=== PATIENT | male | born 1975 | race American Indian/Alaskan Native ===

== ENCOUNTER 2018-03-26 20:54 | Emergency (ER) | payer MEDICAID ==
[2018-03-26 21:22] VITALS: BP 140/86
[2018-03-26] MEDS ORDERED: ULTRAM ONE (23:56)
[2018-03-26] MEDS ORDERED: ULTRAM PO ONE (23:59)
[2018-03-27] MEDS ORDERED: FLEXERIL PO ONE (01:49)
[2018-03-27] MEDS ORDERED: TORADOL IM ONE (01:49)
--- NOTE | 2018-03-27 01:53 | Emergency Department Report ---
ED General Adult HPI - General Chief complaint: Neck Pain/Injury Stated complaint: NECK PAIN Time Seen by Provider: 03/27/18 01:49 Source: patient Mode of arrival: Ambulatory Limitations: No Limitations - History of Present Illness Initial comments: 42-year-old -[place] female with a past medical history of asthma comes in today complaining of neck pain that radiates down her back and both arms down to her fingers. Patient reports that the feeling is burning sensation and numbness. This started about 5 PM. She reports this is never happened to her before and denies any trauma. Patient reports that she was cooking and within a potatoes when she felt something pinch and all of a sudden she had sharp pain that started shooting down her arms to her fingers that is burning and constant. Patient denies any fever no chills no nausea no vomiting. Patient reports that the Ultram that she was given has not touched her pain. Location: neck Radiation: back, extremity Severity scale (0 -10): 10 (bilateral hands) Quality: burning, sharp Consistency: constant Improves with: none Worsens with: movement Associated Symptoms: denies other symptoms. denies: confusion, chest pain, fever/chills, headaches Treatments Prior to Arrival: none - Related Data Previous Rx's Medication Instructions Recorded Last Taken Type Cyclobenzaprine [Flexeril 10 MG 10 mg PO TID PRN #15 tablet 03/27/18 Unknown Rx TAB] Ibuprofen [Motrin 800 MG tab] 800 mg PO Q8HR PRN #30 tablet 03/27/18 Unknown Rx Allergies Allergy/AdvReac Type Severity Reaction Status Date / Time shellfish derived Allergy Hives Verified 03/26/18 21:21 ED Review of Systems ROS: Stated complaint: NECK PAIN Other details as noted in HPI Constitutional: denies: chills, fever Eyes: denies: eye pain, eye discharge, vision change ENT: denies: ear pain, throat pain Respiratory: denies: cough, shortness of breath, wheezing Cardiovascular: denies: chest pain, palpitations Endocrine: no symptoms reported Gastrointestinal: denies: abdominal pain, nausea, diarrhea Genitourinary: denies: urgency, dysuria Musculoskeletal: back pain, arthralgia (neck pain that radiates) Skin: denies: rash, lesions Neurological: denies: headache, weakness, paresthesias Psychiatric: denies: anxiety, depression Hematological/Lymphatic: denies: easy bleeding, easy bruising ED Past Medical Hx - Past Medical History Previous Medical History?: Yes Hx Asthma: Yes - Surgical History Past Surgical History?: No - Social History Smoking Status: Never Smoker Substance Use Type: None - Medications Home Medications: Home Medications Medication Instructions Recorded Confirmed Last Taken Type Cyclobenzaprine [Flexeril 10 MG 10 mg PO TID PRN #15 tablet 03/27/18 Unknown Rx TAB] Ibuprofen [Motrin 800 MG tab] 800 mg PO Q8HR PRN #30 tablet 03/27/18 Unknown Rx ED Physical Exam - General Limitations: No Limitations General appearance: alert, other (tearful. Appears to be in pain) - Head Head exam: Present: atraumatic, normocephalic - Eye Eye exam: Present: normal appearance - Neck Neck exam: Present: normal inspection, tenderness, lymphadenopathy (secondary to pain). Absent: full ROM - Respiratory Respiratory exam: Present: normal lung sounds bilaterally. Absent: respiratory distress - Cardiovascular Cardiovascular Exam: Present: tachycardia - Expanded Upper Extremity Exam Left Shoulder Exam: Present: normal inspection, full ROM, tenderness (tenderness trapeze) Upper Arm exam: Present: normal inspection, full ROM. Absent: tenderness Elbow exam: Present: normal inspection, full ROM. Absent: tenderness Forearm Wrist exam: Present: normal inspection, full ROM. Absent: tenderness Hand Wrist exam: Present: normal inspection, full ROM. Absent: tenderness Right Shoulder Exam: Present: normal inspection, tenderness (trapezius muscle) Upper Arm exam: Present: normal inspection. Absent: full ROM Elbow exam: Present: normal inspection. Absent: full ROM, tenderness Forearm Wrist exam: Present: normal inspection, full ROM. Absent: tenderness Hand Wrist exam: Present: normal inspection, full ROM. Absent: tenderness Vascular: Present: normal capillary refill - Back Exam Back exam: Present: normal inspection, tenderness (upper back tenderness) - Neurological Exam Neurological exam: Present: alert, oriented X3 - Psychiatric Psychiatric exam: Present: normal affect, normal mood - Skin Skin exam: Present: warm, dry, intact, normal color. Absent: rash ED Course Vital Signs 03/26/18 21:15 Temperature 98.4 F Pulse Rate 121 H Respiratory 20 Rate Blood Pressure 140/86 O2 Sat by Pulse 100 Oximetry ED Medical Decision Making - Radiology Data Radiology results: report reviewed FINDINGS: There is moderate narrowing of the C5-C6 disc with anterior osteophytes. The canal size is normal at this level. Nerve root impingement is not seen. There is severe narrowing of the C6-C7 disc. There is posterior spurring along the ventral aspect of the spinal canal left of midline with borderline canal size. Neural foraminal impingement is not seen. The upper cervical discs are normal height. The alignment is normal. The prevertebral soft tissues and C1-C2 articulation appear intact. IMPRESSION: Moderate to severe arthritic changes of the C5-C6 and C6-C7 discs as described. Transcribed By: RB Dictated By: PRAMOD ARREOLA MD Electronically Authenticated By: PRAMOD ARREOLA MD Signed Date/Time: 03/27/18401 DD/ 1 - Medical Decision Making Assessment evaluated by this provider fast track. Toradol injection and Flexeril was given to patient. CT of the neck was ordered and completed. IMPRESSION: Moderate to severe arthritic changes of the C5-C6 and C6-C7 discs as described. Would discharge patient 1 ibuprofen and Flexeril she's to follow up with orthopedics for further evaluation. Critical care attestation.: If time is entered above; I have spent that time in minutes in the direct care of this critically ill patient, excluding procedure time. ED Disposition Clinical Impression: Degenerative arthritis of cervical spine Qualifiers: Spinal osteoarthritis complication: with radiculopathy Qualified Code(s): M47.22 - Other spondylosis with radiculopathy, cervical region Disposition: DC-01 TO HOME OR SELFCARE Is pt being admited?: No Does the pt Need Aspirin: No Condition: Stable Instructions: Osteoarthritis (ED) Additional Instructions: Please take pain medication as prescribed. Please follow up with orthopedics for further evaluation and management. Prescriptions: Cyclobenzaprine [Flexeril 10 MG TAB] 10 mg PO TID PRN #15 tablet PRN Reason: muscle spasm Ibuprofen [Motrin 800 MG tab] 800 mg PO Q8HR PRN #30 tablet PRN Reason: Pain Referrals: [facility] [Other] - 3-5 Days PRAMOD ABARCA MD [Staff Physician] - 3-5 Days MAREK RAMIREZ MD [Staff Physician] - 3-5 Days Forms: Work/School Release Form(ED)
--- NOTE | 2018-03-27 04:07 | Cat Scan Report ---
FINAL REPORT EXAM: CT CERVICAL SPINE WO CON HISTORY: neck pain with burning and radiation down both arm TECHNIQUE: Routine axial imaging was obtained of the cervical spine without IV contrast with sagittal and coronal reconstructions. FINDINGS: There is moderate narrowing of the C5-C6 disc with anterior osteophytes. The canal size is normal at this level. Nerve root impingement is not seen. There is severe narrowing of the C6-C7 disc. There is posterior spurring along the ventral aspect of the spinal canal left of midline with borderline canal size. Neural foraminal impingement is not seen. The upper cervical discs are normal height. The alignment is normal. The prevertebral soft tissues and C1-C2 articulation appear intact. IMPRESSION: Moderate to severe arthritic changes of the C5-C6 and C6-C7 discs as described.
[2018-03-27] MEDS ORDERED: NORCO 5/325 PO ONE (04:27)
== END 2018-03-27 05:15 | disposition home or self-care (01) ==
LOC: ED 20:54
DX: M47.22 Other spondylosis with radiculopathy, cervical region (principal); J45.909 Unspecified asthma, uncomplicated; Z91.013 Allergy to seafood
CPT/HCPCS: 72125; 96372; 99283; J1885

== ENCOUNTER 2018-03-31 11:45 | Emergency (ER) | payer MEDICAID ==
[2018-03-31 12:24] VITALS: BP 122/80
[2018-03-31] MEDS ORDERED: TORADOL IM ONE (15:48)
[2018-03-31] MEDS ORDERED: FLEXERIL PO ONE (15:48)
--- NOTE | 2018-03-31 16:02 | Emergency Department Report ---
ED Neck Pain/Injury HPI - General Chief Complaint: Neck Pain/Injury Stated Complaint: NECK/BILATERAL ARM PAIN Time Seen by Provider: 03/31/18 15:25 Mode of arrival: Ambulatory Limitations: No Limitations - History of Present Illness Initial Comments: This is a 42-year-old female nontoxic, well nourished in appearance, no acute signs of distress presents to the ED with c/o of neck pain times 1 week. Patient stated last week she was cooking and felt a sharp neck pain sensation that radiates to bilateral upper extremities and describes as aching. Patient stated that intermittently she gets a tingling sensation with numbness. Patient denies any direct trauma. Patient stated that symptoms are resolved slightly since last week but has not resolved completely. Patient stated that she was seen by a provider in the ED last week and received a CT scan and was told that she has severe arthritis of the C-spine but denies following up with a spine doctor. Patient denies any new trauma. Patient has pain as aching. Denies any headache, blurry vision, fever, chills, nausea, vomiting, chest pain , shortness of breath, abdominal pain. Patient denies any drug allergies or significant past medical history. MD Complaint: neck pain -: week(s) (1) Place: home Radiation: right upper extremity, left upper extremity Severity: mild Severity scale (0 -10): 8 Quality: aching Consistency: constant Improves With: none Worsens With: none Associated Symptoms: none. denies: headache, fever, numbness, tingling, weakness, vertigo, difficulty walking, swollen glands, difficulty swallowing, nausea, vomiting Treatments Prior to Arrival: none - Related Data Previous Rx's Medication Instructions Recorded Last Taken Type Cyclobenzaprine [Flexeril 10 MG 10 mg PO TID PRN #15 tablet 03/27/18 Unknown Rx TAB] Ibuprofen [Motrin 800 MG tab] 800 mg PO Q8HR PRN #30 tablet 03/27/18 Unknown Rx Naproxen [Naprosyn TAB] 500 mg PO BID PRN #30 tablet 03/31/18 Unknown Rx methOCARBAMOL [Robaxin TAB] 500 mg PO BID #10 tab 03/31/18 Unknown Rx Allergies Allergy/AdvReac Type Severity Reaction Status Date / Time shellfish derived Allergy Hives Verified 03/26/18 21:21 ED Review of Systems ROS: Stated complaint: NECK/BILATERAL ARM PAIN Other details as noted in HPI Constitutional: denies: chills, fever Eyes: denies: eye pain, eye discharge, vision change ENT: denies: ear pain, throat pain Respiratory: denies: cough, shortness of breath, wheezing Cardiovascular: denies: chest pain, palpitations Endocrine: no symptoms reported Gastrointestinal: denies: abdominal pain, nausea, diarrhea Genitourinary: denies: urgency, dysuria Musculoskeletal: back pain. denies: joint swelling, arthralgia Skin: denies: rash, lesions Neurological: denies: headache, weakness, paresthesias Psychiatric: denies: anxiety, depression Hematological/Lymphatic: denies: easy bleeding, easy bruising ED Past Medical Hx - Past Medical History Hx Asthma: Yes - Surgical History Past Surgical History?: Yes Additional Surgical History: - Social History Smoking Status: Never Smoker Substance Use Type: None - Medications Home Medications: Home Medications Medication Instructions Recorded Confirmed Last Taken Type Cyclobenzaprine [Flexeril 10 MG 10 mg PO TID PRN #15 tablet 03/27/18 Unknown Rx TAB] Ibuprofen [Motrin 800 MG tab] 800 mg PO Q8HR PRN #30 tablet 03/27/18 Unknown Rx Naproxen [Naprosyn TAB] 500 mg PO BID PRN #30 tablet 03/31/18 Unknown Rx methOCARBAMOL [Robaxin TAB] 500 mg PO BID #10 tab 03/31/18 Unknown Rx ED Physical Exam - General Limitations: No Limitations General appearance: alert, in no apparent distress - Head Head exam: Present: atraumatic, normocephalic - Eye Eye exam: Present: normal appearance, PERRL, EOMI Pupils: Present: normal accommodation - ENT ENT exam: Present: normal exam, mucous membranes moist - Neck Neck exam: Present: normal inspection, tenderness, full ROM, other (Negative nucual rigioty. normal ROM with pain.). Absent: meningismus, lymphadenopathy - Respiratory Respiratory exam: Present: normal lung sounds bilaterally. Absent: respiratory distress, wheezes, rales, rhonchi, stridor, chest wall tenderness, accessory muscle use, decreased breath sounds, prolonged expiratory - Cardiovascular Cardiovascular Exam: Present: regular rate, normal rhythm, normal heart sounds. Absent: irregular rhythm, systolic murmur, diastolic murmur, rubs, gallop - GI/Abdominal GI/Abdominal exam: Present: soft, normal bowel sounds. Absent: distended, tenderness, guarding, rebound, rigid, diminished bowel sounds - Rectal Rectal exam: Present: deferred - Extremities Exam Extremities exam: Present: normal inspection, full ROM, normal capillary refill - Back Exam Back exam: Present: normal inspection, full ROM, paraspinal tenderness ( cervical region). Absent: tenderness, CVA tenderness (R), CVA tenderness (L), muscle spasm, vertebral tenderness, rash noted - Neurological Exam Neurological exam: Present: alert, oriented X3, CN II-XII intact, normal gait - Psychiatric Psychiatric exam: Present: normal affect, normal mood - Skin Skin exam: Present: warm, dry, intact, normal color. Absent: rash ED Course Vital Signs 03/31/18 12:21 Temperature 98.7 F Pulse Rate 110 H Respiratory 18 Rate Blood Pressure 122/80 O2 Sat by Pulse 100 Oximetry - Reevaluation(s) Reevaluation #1: 03/31/18 16:03 Patient is speaking in full sentences with no signs of distress noted. ED Medical Decision Making - Medical Decision Making This is a 42-year-old male that presents with cervical spine arthritis. Patient stable was examined by me. A previous CT cervical spine has been obtained on 03/2105/21/2018 with impression of Moderate to severe arthritic changes of the C5-C6 and C6-C7 discs. Patient did receive Toradol and Flexeril in the ED today and stated that symptoms are improving subsided. There is no nuchal rigidity. No headache. Neurologically intact. Patient will be discharged with naproxen and Robaxin. Patient was instructed not to operate any machinery after discharge and stated that her family member will drive her home. Patient was instructed to Follow-up with a primary care doctor in 3-5 days or if symptoms worsen and continue return to emergency room as soon as possible. At time of discharge, the patient does not seem toxic or ill in appearance. No acute signs of distress noted. Patient agrees to discharge treatment plan of care. No further questions noted by the patient. Critical care attestation.: If time is entered above; I have spent that time in minutes in the direct care of this critically ill patient, excluding procedure time. ED Disposition Clinical Impression: Cervical radiculopathy, Cervical spine arthritis Disposition: TO HOME OR SELFCARE Is pt being admited?: No Does the pt Need Aspirin: No Condition: Stable Instructions: Cervical Radiculopathy (ED), Methocarbamol (By mouth), Naproxen ( By mouth) Additional Instructions: Follow-up with a primary care doctor in 3-5 days or if symptoms worsen and continue return to emergency room as soon as possible. Prescriptions: methOCARBAMOL [Robaxin TAB] 500 mg PO BID #10 tab Naproxen [Naprosyn TAB] 500 mg PO BID PRN #30 tablet PRN Reason: Pain Referrals: PRIMARY CARE, [Referring] - 3-5 Days IKE BAR MD [Staff Physician] - 3-5 Days [facility] [Outside] - 3-5 Days [facility] [Outside] - 3-5 Days Forms: Work/School Release Form(ED)
== END 2018-03-31 16:36 | disposition home or self-care (01) ==
LOC: ED 11:45
DX: M47.22 Other spondylosis with radiculopathy, cervical region (principal); J45.909 Unspecified asthma, uncomplicated; Z91.013 Allergy to seafood
CPT/HCPCS: 96372; 99282; J1885